=== PATIENT | male | born 1990 | race Caucasian/White ===

== ENCOUNTER 2025-03-23 09:16 | Emergency (ER) | payer OTHER ==
[~2025-03-23] VITALS: Ht 182.9 cm; Wt 93.4 kg
[2025-03-23] MEDS: KETOROLAC 30 MG/ML 1 ML VIAL IV ONE (09:47)
[2025-03-23] MEDS: MORPHINE 2 MG/ML 1 ML VIAL IV PRN (09:47)
[2025-03-23] MEDS ORDERED: NS 1,870 ML IV ONE (10:30)
[2025-03-23 10:44] LABS: BASO # 0.0 10^3/uL (0.0-0.2); BASO % 0.7 % (0.0-1.0); EOS # 0.2 10^3/uL (0.0-0.5); EOS % 3.3 % (0.0-3.0); LYMPH # 1.4 10^3/uL (1.5-5.0); LYMPH % 23.8 % (24.0-44.0); MONO # 0.5 10^3/uL (0.0-0.8); MONO % 8.0 % (2.0-8.0); NEUTROPHILS # 3.9 10^3/uL (1.5-8.5); NEUTROPHILS % 64.0 % (36.0-66.0); PLATELET COUNT, AUTOMATED 219 10^3/uL (150-450)
[2025-03-23 10:52] LABS: ALT/SGPT 49 U/L (7.0-40); AST/SGOT 49 U/L (<34); C REACTIVE PROTEIN QUANTITATIV < 0.50 MG/DL (<1.0); CALCIUM LEVEL 8.7 MG/DL (8.5-10.1); CARBON DIOXIDE LEVEL 28 MMOL/L (20-31); CHLORIDE LEVEL 103 MMOL/L (98-107); CREATININE FOR GFR 0.77 MG/DL (0.70-1.30); GLOMERULAR FILTRATION RATE > 90.0 (>60); POTASSIUM SERUM 4.2 MMOL/L (3.5-5.1); SODIUM LEVEL 141 MMOL/L (136-145)
[2025-03-23] MEDS: MORPHINE 2 MG/ML 1 ML VIAL IV ONE (13:19)
[2025-03-23] MEDS ORDERED: KETO-204 PO (13:41)
[2025-03-23 13:56] VITALS: BP 123/72; TEMP 98.7; O2SAT 95
== END 2025-03-23 14:29 | disposition home or self-care (01) ==
LOC: M ED 09:16
DX: S82.252A Displaced comminuted fracture of shaft of left tibia, initial encounter for closed fracture (principal); Y92.9 Unspecified place or not applicable; Y93.9 Activity, unspecified; Y99.0 Civilian activity done for income or pay; W00.0XXA Fall on same level due to ice and snow, initial encounter; F10.10 Alcohol abuse, uncomplicated; Z79.2 Long term (current) use of antibiotics
CPT/HCPCS: 29505; 71045; 73564; 73590; 73610; 73700; 80048; 80076; 84145; 85025; 86140; 93005; 94760; 96374; 96375; 96376; 99285; J1885